=== PATIENT | female | born 1970 | race Caucasian/White ===

== ENCOUNTER 2017-01-30 01:05 | Emergency (ER) | payer OTHER ==
[~2017-01-30] VITALS: Ht 160 cm; Wt 64.0 kg
[~2017-01-30 01:05] MED LIST: BENZ2AMP2 PO; DIVA500T35 PO; FERR-89 PO; PALI234D IM; RISP3TAB6 PO
[2017-01-30 01:50] LABS: BASOPHILS % (AUTO) 0.3 % (0.0-2.0); EOSINOPHILS % (AUTO) 0.7 % (1.0-6.0); HEMATOCRIT 37.8 % (36-46); HEMOGLOBIN 12.4 g/dL (12.0-16.0); LYMPHOCYTES % (AUTO) 29.2 % (22.0-44.0); MEAN CORPUSCULAR HEMOGLOBIN 28.6 pg (26.0-34.0); MEAN CORPUSCULAR HGB CONC 32.9 G/dL (31.0-37.0); MEAN CORPUSCULAR VOLUME 87 fL (80-100); MONOCYTES # (AUTO) 0.5 K/uL (0.1-1.0); MONOCYTES % (AUTO) 5.1 % (2.0-9.0); NEUTROPHILS # (AUTO) 6.7 K/uL (1.8-7.7); NEUTROPHILS % (AUTO) 64.7 % (40.0-70.0); PLATELET COUNT (AUTO) 258 K/uL (150-450); RED BLOOD CELL COUNT(AUTO) 4.35 MIL/uL (4.00-5.20); RED CELL DISTRIBUTION WIDTH 14.3 % (11.5-14.5); WHITE BLOOD COUNT (AUTO) 10.4 K/uL (4.5-11.0)
[2017-01-30 02:00] LABS: ANION GAP 6 mmol/L (8-16); CALCIUM, TOTAL 8.9 mg/dL (8.8-10.5); CARBON DIOXIDE 31 mmol/L (22-29); CHLORIDE 102 mmol/L (98-107); CREATININE 0.61 mg/dL (0.60-1.30); GLOMERULAR FILTR. RATE CALC > 60 mL/min (>60); POTASSIUM 3.5 mmol/L (3.5-5.1); SODIUM SERUM 139 mmol/L (136-145); UREA NITROGEN, BLOOD 8 mg/dL (7-18)
[2017-01-30 02:06] LABS: ALANINE AMINOTRANSFERASE 19 U/L (12-78); ALBUMIN 3.7 g/dL (3.4-5.0); ASPARTATE AMINOTRANSFERASE 14 U/L (15-37); BILIRUBIN,TOTAL 0.3 mg/dL (0.1-1.0); TOTAL PROTEIN, SERUM 7.6 g/dL (6.4-8.2)
[2017-01-30 03:47] VITALS: BP 112/68
[2017-01-30] MEDS ORDERED: RISP1 PO (08:41)
[2017-01-30] MEDS ORDERED: DIVA125T PO (08:41)
== END 2017-01-30 03:49 | disposition home or self-care (01) ==
LOC: EMS 01:06
DX: F25.9 Schizoaffective disorder, unspecified (principal); I10 Essential (primary) hypertension; F17.210 Nicotine dependence, cigarettes, uncomplicated; F15.90 Other stimulant use, unspecified, uncomplicated
CPT/HCPCS: 36415; 80053; 85025; 99285; G0480

== ENCOUNTER 2017-01-30 08:19 | Inpatient (IN) | payer MEDICAID, OTHER ==
[~2017-01-30] VITALS: Ht 170.2 cm; Wt 63.2 kg
[2017-01-30] MEDS ORDERED: DIVA125T PO (08:41)
[2017-01-30] MEDS ORDERED: RISP1 PO (08:41)
[2017-01-30 09:42] LABS: BASOPHILS % (AUTO) 0.3 % (0.0-2.0); EOSINOPHILS % (AUTO) 0.6 % (1.0-6.0); HEMATOCRIT 37.8 % (36-46); HEMOGLOBIN 12.5 g/dL (12.0-16.0); LYMPHOCYTES % (AUTO) 35.1 % (22.0-44.0); MEAN CORPUSCULAR HEMOGLOBIN 28.7 pg (26.0-34.0); MEAN CORPUSCULAR VOLUME 87 fL (80-100); MONOCYTES # (AUTO) 0.4 K/uL (0.1-1.0); MONOCYTES % (AUTO) 4.8 % (2.0-9.0); NEUTROPHILS % (AUTO) 59.2 % (40.0-70.0); PLATELET COUNT (AUTO) 239 K/uL (150-450); RED BLOOD CELL COUNT(AUTO) 4.35 MIL/uL (4.00-5.20); RED CELL DISTRIBUTION WIDTH 14.5 % (11.5-14.5); WHITE BLOOD COUNT (AUTO) 8.4 K/uL (4.5-11.0)
[2017-01-30 09:47] LABS: ANION GAP 11 mmol/L (8-16); CALCIUM, TOTAL 8.9 mg/dL (8.8-10.5); CARBON DIOXIDE 26 mmol/L (22-29); CHLORIDE 103 mmol/L (98-107); CREATININE 0.56 mg/dL (0.60-1.30); GLOMERULAR FILTR. RATE CALC > 60 mL/min (>60); POTASSIUM 3.7 mmol/L (3.5-5.1); SODIUM SERUM 140 mmol/L (136-145); UREA NITROGEN, BLOOD 8 mg/dL (7-18)
[2017-01-30 09:53] LABS: ALANINE AMINOTRANSFERASE 16 U/L (12-78); ALBUMIN 3.8 g/dL (3.4-5.0); ASPARTATE AMINOTRANSFERASE 14 U/L (15-37); BILIRUBIN,TOTAL 0.2 mg/dL (0.1-1.0); TOTAL PROTEIN, SERUM 7.8 g/dL (6.4-8.2)
[2017-01-30 10:06] LABS: VALPROIC ACID < 3 mcg/mL (50-100)
[2017-01-30 11:34] VITALS: BP 121/78
[2017-01-30] MEDS: LORazepam 2 MG TABLET PO PRN ×2 (12:32→16:38)
[2017-01-30] MEDS: HALOPERIDOL 5 MG TABLET PO PRN ×2 (12:33→16:38)
[2017-01-30 16:08] VITALS: BP 114/77
[2017-01-31 06:34] VITALS: BP 119/72
[2017-01-31] MEDS: LORazepam 2 MG TABLET PO PRN (06:44)
[2017-01-31] MEDS: HALOPERIDOL 5 MG TABLET PO PRN (07:46)
[2017-01-31] MEDS ORDERED: IBUPROFEN 400 MG TABLET PO PRN (10:30)
[2017-01-31] MEDS: RisperiDONE 3 MG TABLET PO SCH (17:24)
[2017-01-31] MEDS: BENZTROPINE MESYLATE 1 MG TABLET PO SCH (17:24)
[2017-01-31] MEDS: DIVALPROEX SODIUM 500 MG DR TABLET PO SCH (17:24)
[2017-02-01] MEDS: PALIPERIDONE PALMITATE 234 MG/1.5 ML SYRINGE IM SCH ×2 (09:00→11:52)
[2017-02-01] MEDS: BENZTROPINE MESYLATE 1 MG TABLET PO SCH ×2 (10:56→16:13)
[2017-02-01] MEDS: DIVALPROEX SODIUM 500 MG DR TABLET PO SCH ×2 (10:56→16:13)
[2017-02-01] MEDS: RisperiDONE 3 MG TABLET PO SCH ×2 (10:56→16:13)
[2017-02-01 16:57] VITALS: BP 117/71
[2017-02-01] MEDS: LORazepam 2 MG TABLET PO PRN (20:19)
[2017-02-01] MEDS: HALOPERIDOL 5 MG TABLET PO PRN (20:19)
[2017-02-02] MEDS: BENZTROPINE MESYLATE 1 MG TABLET PO SCH ×2 (09:30→16:03)
[2017-02-02] MEDS: DIVALPROEX SODIUM 500 MG DR TABLET PO SCH ×2 (09:30→16:03)
[2017-02-02] MEDS: RisperiDONE 3 MG TABLET PO SCH ×2 (09:31→16:03)
[2017-02-02 16:05] VITALS: BP 114/76
[2017-02-02] MEDS: ACETAMINOPHEN 325 MG TABLET PO PRN (16:08)
[2017-02-02] MEDS: HALOPERIDOL 5 MG TABLET PO PRN (18:06)
[2017-02-02] MEDS: LORazepam 2 MG TABLET PO PRN (18:06)
[2017-02-03 08:00] VITALS: BP 99/63
[2017-02-03 09:15] LABS: CHOL/HDL RATIO 3.4 (3.9-5.7)
[2017-02-03] MEDS: RisperiDONE 3 MG TABLET PO SCH ×2 (09:28→16:08)
[2017-02-03] MEDS: BENZTROPINE MESYLATE 1 MG TABLET PO SCH ×2 (09:28→16:08)
[2017-02-03] MEDS: DIVALPROEX SODIUM 500 MG DR TABLET PO SCH ×2 (09:28→16:08)
[2017-02-03] MEDS: HALOPERIDOL 5 MG TABLET PO PRN (13:44)
[2017-02-03] MEDS: LORazepam 2 MG TABLET PO PRN ×2 (13:44→19:55)
[2017-02-03] MEDS: ACETAMINOPHEN 325 MG TABLET PO PRN (16:36)
[2017-02-03] MEDS: ZOLPIDEM TARTRATE 10 MG TABLET PO PRN (23:16)
[2017-02-04] MEDS: RisperiDONE 3 MG TABLET PO SCH ×2 (09:13→16:11)
[2017-02-04] MEDS: BENZTROPINE MESYLATE 1 MG TABLET PO SCH ×2 (09:13→16:11)
[2017-02-04] MEDS: DIVALPROEX SODIUM 500 MG DR TABLET PO SCH ×2 (09:13→16:11)
[2017-02-04] MEDS: LORazepam 2 MG TABLET PO PRN (16:11)
[2017-02-05] MEDS: RisperiDONE 3 MG TABLET PO SCH ×2 (08:33→16:24)
[2017-02-05] MEDS: DIVALPROEX SODIUM 500 MG DR TABLET PO SCH ×2 (08:33→16:24)
[2017-02-05] MEDS: BENZTROPINE MESYLATE 1 MG TABLET PO SCH ×2 (08:34→16:24)
[2017-02-05 19:54] VITALS: BP 114/77
[2017-02-05] MEDS: ZOLPIDEM TARTRATE 10 MG TABLET PO PRN (20:49)
[2017-02-05] MEDS: ACETAMINOPHEN 325 MG TABLET PO PRN (21:18)
[2017-02-06] MEDS ORDERED: BENZ1TAB10 PO (08:30)
[2017-02-06] MEDS ORDERED: PALI234D IM (08:31)
[2017-02-06] MEDS: DIVALPROEX SODIUM 500 MG DR TABLET PO SCH (09:08)
[2017-02-06] MEDS: RisperiDONE 3 MG TABLET PO SCH (09:08)
[2017-02-06] MEDS: BENZTROPINE MESYLATE 1 MG TABLET PO SCH (09:08)
== END 2017-02-06 13:45 | disposition home or self-care (01) | DRG 750 ==
LOC: EMS 08:20 → 3EI 09:00
PROVIDERS: ADMIT Psychiatry & Neurology Psychiatry; ATTEND Psychiatry & Neurology Psychiatry
DX: F20.0 Paranoid schizophrenia (principal); I10 Essential (primary) hypertension; E78.5 Hyperlipidemia, unspecified; F17.210 Nicotine dependence, cigarettes, uncomplicated; F19.10 Other psychoactive substance abuse, uncomplicated; F99 Mental disorder, not otherwise specified; F31.9 Bipolar disorder, unspecified; Z79.899 Other long term (current) drug therapy
CPT/HCPCS: 99285; G0480

== ENCOUNTER 2017-02-22 10:50 | Inpatient (IN) | payer MEDICAID ==
[~2017-02-22] VITALS: Ht 170.2 cm; Wt 56.7 kg
[~2017-02-22 10:50] MED LIST changes: +BENZ1TAB10 PO; -BENZ2AMP2 PO; +DIVA125T PO; -DIVA500T35 PO; -FERR-89 PO; +RISP1 PO; -RISP3TAB6 PO
[2017-02-22] MEDS ORDERED: HALOPERIDOL 5 MG TABLET PO PRN (14:00)
[2017-02-22] MEDS ORDERED: ZOLPIDEM TARTRATE 10 MG TABLET PO PRN (14:00)
[2017-02-22 14:15] VITALS: BP 98/60
[2017-02-22] MEDS ORDERED: DIVA500T35 PO (15:57)
[2017-02-22] MEDS ORDERED: RISP3 PO (15:57)
[2017-02-22] MEDS ORDERED: INFLUENZA VIRUS VACCINE QVS 2016-17 (3YR+)/PF 60 MCG/0.5 ML SYRINGE IM ONE (16:00)
[2017-02-22] MEDS ORDERED: PNEUMOCOCCAL VACCINE POLYVALENT 0.5 ML VIAL [PPSV23] IM ONE (16:00)
[2017-02-22 16:05] VITALS: BP 129/60
[2017-02-22] MEDS: RisperiDONE 3 MG TABLET PO SCH (17:05)
[2017-02-22] MEDS: BENZTROPINE MESYLATE 1 MG TABLET PO SCH (17:05)
[2017-02-22] MEDS: DIVALPROEX SODIUM 500 MG DR TABLET PO SCH (17:05)
[2017-02-23] MEDS: BENZTROPINE MESYLATE 1 MG TABLET PO SCH ×2 (08:25→16:02)
[2017-02-23] MEDS: DIVALPROEX SODIUM 500 MG DR TABLET PO SCH ×2 (08:25→16:02)
[2017-02-23] MEDS: RisperiDONE 3 MG TABLET PO SCH ×2 (08:25→16:02)
[2017-02-23] MEDS: LORazepam 2 MG TABLET PO PRN ×2 (09:24→16:03)
[2017-02-23] MEDS ORDERED: IBUPROFEN 400 MG TABLET PO PRN (12:00)
[2017-02-23] MEDS ORDERED: ACETAMINOPHEN 325 MG TABLET PO PRN (12:00)
[2017-02-23] MEDS ORDERED: BENZTROPINE MESYLATE 1 MG TABLET PO SCH (17:00)
[2017-02-23] MEDS ORDERED: DIVALPROEX SODIUM 500 MG DR TABLET PO SCH (17:00)
[2017-02-24 06:29] VITALS: BP 123/71
[2017-02-24] MEDS: RisperiDONE 3 MG TABLET PO SCH ×2 (09:39→16:06)
[2017-02-24] MEDS: DIVALPROEX SODIUM 500 MG DR TABLET PO SCH ×2 (09:39→16:07)
[2017-02-24] MEDS: BENZTROPINE MESYLATE 1 MG TABLET PO SCH ×2 (09:39→16:07)
[2017-02-24] MEDS: LORazepam 2 MG TABLET PO PRN (10:19)
[2017-02-25 08:41] VITALS: BP 122/74
[2017-02-25] MEDS: BENZTROPINE MESYLATE 1 MG TABLET PO SCH ×2 (10:04→16:00)
[2017-02-25] MEDS: DIVALPROEX SODIUM 500 MG DR TABLET PO SCH ×2 (10:04→16:00)
[2017-02-25] MEDS: RisperiDONE 3 MG TABLET PO SCH ×2 (10:04→16:00)
[2017-02-25] MEDS: LORazepam 2 MG TABLET PO PRN ×2 (10:54→16:00)
[2017-02-25 16:11] VITALS: BP 112/73
[2017-02-26] MEDS: BENZTROPINE MESYLATE 1 MG TABLET PO SCH ×2 (08:39→16:23)
[2017-02-26] MEDS: DIVALPROEX SODIUM 500 MG DR TABLET PO SCH ×2 (08:39→16:23)
[2017-02-26] MEDS: RisperiDONE 3 MG TABLET PO SCH ×2 (08:40→16:23)
[2017-02-26] MEDS: LORazepam 2 MG TABLET PO PRN ×2 (12:41→17:19)
[2017-02-26 16:00] VITALS: BP 142/80
[2017-02-27 08:30] VITALS: BP 126/68
[2017-02-27] MEDS: RisperiDONE 3 MG TABLET PO SCH ×2 (08:47→16:33)
[2017-02-27] MEDS: BENZTROPINE MESYLATE 1 MG TABLET PO SCH ×2 (08:47→16:33)
[2017-02-27] MEDS: DIVALPROEX SODIUM 500 MG DR TABLET PO SCH ×2 (08:47→16:33)
[2017-02-27] MEDS: LORazepam 2 MG TABLET PO PRN ×2 (12:21→17:49)
[2017-02-28 08:45] VITALS: BP 130/68
[2017-02-28] MEDS: DIVALPROEX SODIUM 500 MG DR TABLET PO SCH ×2 (09:23→16:07)
[2017-02-28] MEDS: RisperiDONE 3 MG TABLET PO SCH ×2 (09:23→16:07)
[2017-02-28] MEDS: BENZTROPINE MESYLATE 1 MG TABLET PO SCH ×2 (09:23→16:07)
[2017-02-28] MEDS: LORazepam 2 MG TABLET PO PRN ×2 (10:07→15:47)
[2017-02-28 16:00] VITALS: BP 109/72
[2017-03-01] MEDS: RisperiDONE 3 MG TABLET PO SCH (08:11)
[2017-03-01] MEDS: BENZTROPINE MESYLATE 1 MG TABLET PO SCH (08:11)
[2017-03-01] MEDS: DIVALPROEX SODIUM 500 MG DR TABLET PO SCH (08:11)
[2017-03-01 08:49] VITALS: BP 100/76
[2017-03-01] MEDS: LORazepam 2 MG TABLET PO PRN (10:03)
== END 2017-03-01 13:25 | disposition home or self-care (01) | DRG 750 ==
LOC: B3A 14:04 → EDSTATUS 14:15
PROVIDERS: ADMIT Psychiatry & Neurology Psychiatry; ATTEND Psychiatry & Neurology Psychiatry
DX: F20.0 Paranoid schizophrenia (principal); Z91.14 Patient's other noncompliance with medication regimen; I10 Essential (primary) hypertension; E78.5 Hyperlipidemia, unspecified; F19.10 Other psychoactive substance abuse, uncomplicated; Z28.21 Immunization not carried out because of patient refusal; Z71.51 Drug abuse counseling and surveillance of drug abuser
CPT/HCPCS: 87081; 90471

== ENCOUNTER 2017-11-13 03:55 | Emergency (ER) | payer MEDICAID, OTHER ==
[~2017-11-13] VITALS: Ht 167.6 cm; Wt 77.3 kg
[~2017-11-13 03:55] MED LIST changes: -DIVA125T PO; +DIVA500T35 PO; -RISP1 PO; +RISP3 PO
[2017-11-13 04:56] VITALS: BP 132/81
== END 2017-11-13 06:41 | disposition home or self-care (01) ==
LOC: EMS 03:56
DX: F25.9 Schizoaffective disorder, unspecified (principal); F31.9 Bipolar disorder, unspecified; I10 Essential (primary) hypertension; F17.210 Nicotine dependence, cigarettes, uncomplicated
CPT/HCPCS: 99285; 99406

== ENCOUNTER 2017-12-11 09:35 | Inpatient (IN) | payer MEDICAID, OTHER ==
[~2017-12-11] VITALS: Ht 170.2 cm; Wt 59.4 kg
[2017-12-11 10:29] LABS: BASOPHILS # (AUTO) 0.02 K/uL (0.00-0.20); BASOPHILS % (AUTO) 0.3 % (0.0-2.0); EOSINOPHILS # (AUTO) 0.03 K/uL (0.00-0.70); EOSINOPHILS % (AUTO) 0.42 % (1.0-6.0); HEMATOCRIT 36.3 % (36-46); HEMOGLOBIN 12.4 g/dL (12.0-16.0); LYMPHOCYTES # (AUTO) 2.7 K/uL (1.0-4.8); MEAN CORPUSCULAR HEMOGLOBIN 30.2 pg (26.0-34.0); MEAN CORPUSCULAR HGB CONC 34.1 G/dL (31.0-37.0); MEAN CORPUSCULAR VOLUME 89 fL (80-100); MONOCYTES # (AUTO) 0.4 K/uL (0.1-1.0); MONOCYTES % (AUTO) 5.5 % (2.0-9.0); NEUTROPHILS # (AUTO) 4.8 K/uL (1.8-7.7); NEUTROPHILS % (AUTO) 59.8 % (40.0-70.0); PLATELET COUNT (AUTO) 225 K/uL (150-450); RED BLOOD CELL COUNT(AUTO) 4.09 MIL/uL (4.00-5.20); RED CELL DISTRIBUTION WIDTH 13.2 % (11.5-14.5)
[2017-12-11 10:47] LABS: ALANINE AMINOTRANSFERASE 17 U/L (12-78); ALBUMIN 3.8 g/dL (3.4-5.0); ALKALINE PHOSPHATASE 75 U/L (46-116); ANION GAP 9 mmol/L (8-16); ASPARTATE AMINOTRANSFERASE 14 U/L (15-37); BILIRUBIN,TOTAL 0.5 mg/dL (0.1-1.0); CALCIUM, TOTAL 8.8 mg/dL (8.8-10.5); CARBON DIOXIDE 30 mmol/L (22-29); CHLORIDE 99 mmol/L (98-107); CREATININE 0.61 mg/dL (0.60-1.30); GLOMERULAR FILTR. RATE CALC > 60 mL/min (>60); GLUCOSE,RANDOM 93 mg/dL (70-110); POTASSIUM 3.7 mmol/L (3.5-5.1); SODIUM SERUM 138 mmol/L (136-145); TOTAL PROTEIN, SERUM 7.4 g/dL (6.4-8.2)
[2017-12-11 10:52] LABS: UREA NITROGEN, BLOOD 11 mg/dL (7-18)
[2017-12-11] MEDS ORDERED: ZOLPIDEM TARTRATE 10 MG TABLET PO PRN (11:15)
[2017-12-11 11:27] LABS: VALPROIC ACID < 3 mcg/mL (50-100)
[2017-12-11] MEDS ORDERED: LORazepam 2 MG/ML VIAL IM ONE (11:30)
[2017-12-11] MEDS ORDERED: DiphenhydrAMINE HCL 50 MG/ML VIAL IM ONE (11:30)
[2017-12-11] MEDS ORDERED: HALOPERIDOL LACTATE 5 MG/ML VIAL IM ONE (11:30)
[2017-12-11 11:59] LABS: AMPHET/METH SCREEN,URINE POSITIVE (NEGATIVE); BARBITURATE SCREEN, URINE NEGATIVE (NEGATIVE); BENZODIAZEPINES SCREEN,URINE NEGATIVE (NEGATIVE); CANNABINOID SCREEN,URINE NEGATIVE (NEGATIVE); COCAINE SCREEN,URINE POSITIVE (NEGATIVE); METHADONE SCREEN, URINE NEGATIVE (NEGATIVE); OPIATE SCREEN,URINE NEGATIVE (NEGATIVE)
[2017-12-11 12:00] LABS: PHENCYCLIDINE SCREEN,URINE NEGATIVE (NEGATIVE)
[2017-12-11 12:47] LABS: HCG,QUAL RESULT NEGATIVE (NEGATIVE)
[2017-12-11] MEDS ORDERED: RISP2 PO ×2 (15:10)
[2017-12-11 16:06] VITALS: BP 137/97
[2017-12-11] MEDS: PALIPERIDONE 6 MG ER TABLET PO SCH (20:42)
[2017-12-12 08:11] VITALS: BP 104/75
[2017-12-12 08:18] LABS: CHOL/HDL RATIO 3.9 (3.9-5.7)
[2017-12-12] MEDS: BENZTROPINE MESYLATE 1 MG TABLET PO SCH ×2 (08:26→16:16)
[2017-12-12] MEDS: DIVALPROEX SODIUM 500 MG DR TABLET PO SCH ×2 (08:26→16:16)
[2017-12-12] MEDS: HALOPERIDOL 5 MG TABLET PO PRN (15:47)
[2017-12-12] MEDS ORDERED: ACETAMINOPHEN 325 MG TABLET PO PRN (16:30)
[2017-12-12 16:52] VITALS: BP 104/62
[2017-12-12] MEDS: PALIPERIDONE 6 MG ER TABLET PO SCH (20:03)
[2017-12-13] MEDS ORDERED: PNEUMOCOCCAL VACCINE POLYVALENT 0.5 ML VIAL [PPSV23] IM ONE (01:15)
[2017-12-13] MEDS ORDERED: INFLUENZA VIRUS VACCINE QVS 2017-18 (3YR+)/PF 60 MCG/0.5 ML SYRINGE IM ONE (01:15)
[2017-12-13] MEDS: BENZTROPINE MESYLATE 1 MG TABLET PO SCH ×2 (08:41→16:22)
[2017-12-13] MEDS: DIVALPROEX SODIUM 500 MG DR TABLET PO SCH ×2 (08:41→16:22)
[2017-12-13] MEDS: HALOPERIDOL 5 MG TABLET PO PRN ×2 (12:06→16:22)
[2017-12-13] MEDS: IBUPROFEN 400 MG TABLET PO PRN (14:09)
[2017-12-13 16:00] VITALS: BP 120/59
[2017-12-13] MEDS: LORazepam 2 MG TABLET PO PRN (16:22)
[2017-12-13] MEDS: PALIPERIDONE 6 MG ER TABLET PO SCH (20:04)
[2017-12-14] MEDS: LORazepam 2 MG TABLET PO PRN (08:14)
[2017-12-14] MEDS: DIVALPROEX SODIUM 500 MG DR TABLET PO SCH ×2 (08:14→16:38)
[2017-12-14] MEDS: BENZTROPINE MESYLATE 1 MG TABLET PO SCH ×2 (08:14→16:38)
[2017-12-14] MEDS: HALOPERIDOL 5 MG TABLET PO PRN (08:15)
[2017-12-14 08:36] VITALS: BP 112/72
[2017-12-14 17:23] VITALS: BP 115/83
[2017-12-14] MEDS: PALIPERIDONE 6 MG ER TABLET PO SCH (21:01)
[2017-12-15] MEDS: LORazepam 2 MG TABLET PO PRN (09:55)
[2017-12-15] MEDS: HALOPERIDOL 5 MG TABLET PO PRN (09:55)
[2017-12-15] MEDS: BENZTROPINE MESYLATE 1 MG TABLET PO SCH ×2 (09:55→16:47)
[2017-12-15] MEDS: DIVALPROEX SODIUM 500 MG DR TABLET PO SCH ×2 (09:55→16:47)
[2017-12-15] MEDS: IBUPROFEN 400 MG TABLET PO PRN (11:04)
[2017-12-15 16:37] VITALS: BP 124/78
[2017-12-15] MEDS: PALIPERIDONE 6 MG ER TABLET PO SCH (20:30)
[2017-12-16 08:55] VITALS: BP 101/51
[2017-12-16] MEDS: DIVALPROEX SODIUM 500 MG DR TABLET PO SCH ×2 (10:36→16:13)
[2017-12-16] MEDS: BENZTROPINE MESYLATE 1 MG TABLET PO SCH ×2 (10:36→16:13)
[2017-12-16 18:45] VITALS: BP 115/69
[2017-12-16] MEDS: PALIPERIDONE 6 MG ER TABLET PO SCH (21:09)
[2017-12-17 08:00] VITALS: BP 155/78
[2017-12-17] MEDS ORDERED: DIVA500T35 PO (08:26)
[2017-12-17] MEDS ORDERED: PALI6 PO (08:26)
[2017-12-17] MEDS: DIVALPROEX SODIUM 500 MG DR TABLET PO SCH (08:57)
[2017-12-17] MEDS: BENZTROPINE MESYLATE 1 MG TABLET PO SCH (08:57)
[2017-12-17] MEDS ORDERED: PALIPERIDONE PALMITATE 234 MG/1.5 ML SYRINGE IM SCH (09:00)
== END 2017-12-17 13:45 | disposition home or self-care (01) | DRG 750 ==
LOC: EMS 09:36 → 3EC 14:32 → 3EI 12-15 14:41
PROVIDERS: ADMIT Psychiatry & Neurology Psychiatry; ATTEND Psychiatry & Neurology Psychiatry
DX: F20.0 Paranoid schizophrenia (principal); Z91.14 Patient's other noncompliance with medication regimen; I10 Essential (primary) hypertension; E78.5 Hyperlipidemia, unspecified; F17.210 Nicotine dependence, cigarettes, uncomplicated; F31.9 Bipolar disorder, unspecified; F19.10 Other psychoactive substance abuse, uncomplicated; Z71.51 Drug abuse counseling and surveillance of drug abuser; Z79.899 Other long term (current) drug therapy; Z71.6 Tobacco abuse counseling; Z28.21 Immunization not carried out because of patient refusal
CPT/HCPCS: 96372; 99285; 99406; G0480; J1200; J1630; J2060

== ENCOUNTER 2018-01-24 09:34 | Inpatient (IN) | payer MEDICAID, OTHER ==
[~2018-01-24] VITALS: Ht 162.6 cm; Wt 61.7 kg
[~2018-01-24 09:34] MED LIST changes: +PALI6 PO; -RISP3 PO
[2018-01-24 10:08] LABS: BASOPHILS % (AUTO) 0.4 % (0.0-2.0); EOSINOPHILS % (AUTO) 0.8 % (1.0-6.0); HEMATOCRIT 36.8 % (36-46); HEMOGLOBIN 12.7 g/dL (12.0-16.0); LYMPHOCYTES # (AUTO) 2.4 K/uL (1.0-4.8); LYMPHOCYTES % (AUTO) 26.6 % (22.0-44.0); MEAN CORPUSCULAR HEMOGLOBIN 29.5 pg (26.0-34.0); MEAN CORPUSCULAR HGB CONC 34.4 G/dL (31.0-37.0); MEAN CORPUSCULAR VOLUME 86 fL (80-100); MONOCYTES # (AUTO) 0.6 K/uL (0.1-1.0); MONOCYTES % (AUTO) 6.4 % (2.0-9.0); NEUTROPHILS # (AUTO) 5.9 K/uL (1.8-7.7); NEUTROPHILS % (AUTO) 65.8 % (40.0-70.0); PLATELET COUNT (AUTO) 238 K/uL (150-450); RED BLOOD CELL COUNT(AUTO) 4.29 MIL/uL (4.00-5.20); RED CELL DISTRIBUTION WIDTH 14.4 % (11.5-14.5)
[2018-01-24 10:34] LABS: ANION GAP 7 mmol/L (8-16); CARBON DIOXIDE 31 mmol/L (22-29); CHLORIDE 102 mmol/L (98-107); CREATININE 0.55 mg/dL (0.60-1.30); GLOMERULAR FILTR. RATE CALC > 60 mL/min (>60); GLUCOSE,RANDOM 100 mg/dL (70-110); POTASSIUM 3.9 mmol/L (3.5-5.1); SODIUM SERUM 140 mmol/L (136-145); UREA NITROGEN, BLOOD 10 mg/dL (7-18)
[2018-01-24 10:40] LABS: ALANINE AMINOTRANSFERASE 15 U/L (12-78); ALBUMIN 3.6 g/dL (3.4-5.0); ALKALINE PHOSPHATASE 69 U/L (46-116); ASPARTATE AMINOTRANSFERASE 14 U/L (15-37); BILIRUBIN,TOTAL 0.2 mg/dL (0.1-1.0); TOTAL PROTEIN, SERUM 7.1 g/dL (6.4-8.2)
[2018-01-24 10:42] LABS: AMPHET/METH SCREEN,URINE NEGATIVE (NEGATIVE); BARBITURATE SCREEN, URINE NEGATIVE (NEGATIVE); BENZODIAZEPINES SCREEN,URINE NEGATIVE (NEGATIVE); CANNABINOID SCREEN,URINE POSITIVE (NEGATIVE); COCAINE SCREEN,URINE NEGATIVE (NEGATIVE); METHADONE SCREEN, URINE NEGATIVE (NEGATIVE); OPIATE SCREEN,URINE NEGATIVE (NEGATIVE)
[2018-01-24 10:44] LABS: PHENCYCLIDINE SCREEN,URINE NEGATIVE (NEGATIVE)
[2018-01-24 10:59] LABS: VALPROIC ACID 6 mcg/mL (50-100)
[2018-01-24] MEDS ORDERED: ZOLPIDEM TARTRATE 10 MG TABLET PO PRN (12:30)
[2018-01-24 13:54] VITALS: BP 124/82
[2018-01-24] MEDS ORDERED: INFLUENZA VIRUS VACCINE QVS 2017-18 (3YR+)/PF 60 MCG/0.5 ML SYRINGE IM ONE (15:00)
[2018-01-24] MEDS: BENZTROPINE MESYLATE 1 MG TABLET PO SCH (16:20)
[2018-01-24] MEDS: DIVALPROEX SODIUM 500 MG DR TABLET PO SCH (16:21)
[2018-01-24] MEDS: PALIPERIDONE 6 MG ER TABLET PO SCH (20:09)
[2018-01-25 07:29] LABS: CHOL/HDL RATIO 3.7 (3.9-5.7)
[2018-01-25] MEDS ORDERED: ACETAMINOPHEN 325 MG TABLET PO PRN (09:00)
[2018-01-25] MEDS ORDERED: IBUPROFEN 400 MG TABLET PO PRN (09:00)
[2018-01-25] MEDS: BENZTROPINE MESYLATE 1 MG TABLET PO SCH ×2 (10:28→16:50)
[2018-01-25] MEDS: DIVALPROEX SODIUM 500 MG DR TABLET PO SCH ×2 (10:28→16:50)
[2018-01-25 16:33] VITALS: BP 121/76
[2018-01-25] MEDS ORDERED: OLANZapine 10 MG TABLET PO SCH (21:00)
[2018-01-25] MEDS: PALIPERIDONE 6 MG ER TABLET PO SCH (21:21)
[2018-01-26] MEDS: HALOPERIDOL 5 MG TABLET PO PRN ×2 (08:23→16:35)
[2018-01-26] MEDS: LORazepam 2 MG TABLET PO PRN ×2 (08:23→16:35)
[2018-01-26] MEDS: DIVALPROEX SODIUM 500 MG DR TABLET PO SCH ×2 (08:23→16:34)
[2018-01-26] MEDS: BENZTROPINE MESYLATE 1 MG TABLET PO SCH ×2 (08:23→16:34)
[2018-01-26] MEDS ORDERED: SERTRALINE HCL 100 MG TABLET PO SCH (09:00)
[2018-01-26 16:21] VITALS: BP 96/62
[2018-01-26] MEDS: PALIPERIDONE 6 MG ER TABLET PO SCH (20:13)
[2018-01-27] MEDS: DIVALPROEX SODIUM 500 MG DR TABLET PO SCH ×2 (09:21→16:21)
[2018-01-27] MEDS: BENZTROPINE MESYLATE 1 MG TABLET PO SCH ×2 (09:21→16:21)
[2018-01-27] MEDS: PALIPERIDONE 6 MG ER TABLET PO SCH (21:14)
[2018-01-28 07:05] LABS: CHOL/HDL RATIO 3.7 (3.9-5.7); THYROID STIMULATING HORMONE 0.92 uIU/mL (0.36-3.74)
[2018-01-28 07:13] LABS: HEMOGLOBIN A1C 5.1 % (4.5-6.2)
[2018-01-28] MEDS: DIVALPROEX SODIUM 500 MG DR TABLET PO SCH ×2 (09:52→16:33)
[2018-01-28] MEDS: BENZTROPINE MESYLATE 1 MG TABLET PO SCH ×2 (09:52→16:34)
[2018-01-28 10:18] VITALS: BP 91/56
[2018-01-28] MEDS: LORazepam 2 MG TABLET PO PRN (16:05)
[2018-01-28 16:45] VITALS: BP 128/72
[2018-01-28] MEDS: PALIPERIDONE 6 MG ER TABLET PO SCH (20:31)
[2018-01-29] MEDS: BENZTROPINE MESYLATE 1 MG TABLET PO SCH ×2 (09:40→16:03)
[2018-01-29] MEDS: DIVALPROEX SODIUM 500 MG DR TABLET PO SCH ×2 (09:40→16:03)
== END 2018-01-29 17:00 | disposition home or self-care (01) | DRG 750 ==
LOC: EMS 09:38 → 3EI 13:03
DX: F25.1 Schizoaffective disorder, depressive type (principal); I10 Essential (primary) hypertension; E78.5 Hyperlipidemia, unspecified; E78.00 Pure hypercholesterolemia, unspecified; F12.10 Cannabis abuse, uncomplicated; F17.200 Nicotine dependence, unspecified, uncomplicated; F31.9 Bipolar disorder, unspecified
CPT/HCPCS: 83036; 84443; 99285; G0480

== ENCOUNTER 2018-06-11 10:57 | Inpatient (IN) | payer MEDICAID, OTHER ==
[~2018-06-11] VITALS: Ht 167.6 cm; Wt 63.2 kg
[~2018-06-11 10:57] MED LIST changes: +DIVA-78 PO; -DIVA500T35 PO; -PALI234D IM
[2018-06-11 12:51] LABS: BASOPHILS % (AUTO) 0.4 % (0.0-2.0); EOSINOPHILS % (AUTO) 0.5 % (1.0-6.0); HEMATOCRIT 37.9 % (36-46); HEMOGLOBIN 13.2 g/dL (12.0-16.0); LYMPHOCYTES # (AUTO) 2.4 K/uL (1.0-4.8); LYMPHOCYTES % (AUTO) 25.2 % (22.0-44.0); MEAN CORPUSCULAR HEMOGLOBIN 29.5 pg (26.0-34.0); MEAN CORPUSCULAR HGB CONC 34.9 G/dL (31.0-37.0); MEAN CORPUSCULAR VOLUME 84 fL (80-100); MONOCYTES # (AUTO) 0.6 K/uL (0.1-1.0); MONOCYTES % (AUTO) 6.3 % (2.0-9.0); NEUTROPHILS # (AUTO) 6.5 K/uL (1.8-7.7); NEUTROPHILS % (AUTO) 67.6 % (40.0-70.0); PLATELET COUNT (AUTO) 309 K/uL (150-450); RED BLOOD CELL COUNT(AUTO) 4.49 MIL/uL (4.00-5.20)
[2018-06-11 13:00] LABS: ANION GAP 6 mmol/L (8-16); CALCIUM, TOTAL 8.8 mg/dL (8.8-10.5); CARBON DIOXIDE 29 mmol/L (22-29); CHLORIDE 99 mmol/L (98-107); CREATININE 0.57 mg/dL (0.60-1.30); GLOMERULAR FILTR. RATE CALC > 60 mL/min (>60); GLUCOSE,RANDOM 98 mg/dL (70-110); POTASSIUM 3.6 mmol/L (3.5-5.1); SODIUM SERUM 134 mmol/L (136-145); UREA NITROGEN, BLOOD 6 mg/dL (7-18)
[2018-06-11 13:13] LABS: ALANINE AMINOTRANSFERASE 19 U/L (12-78); ALBUMIN 3.8 g/dL (3.4-5.0); ALKALINE PHOSPHATASE 83 U/L (46-116); ASPARTATE AMINOTRANSFERASE 18 U/L (15-37); BILIRUBIN,TOTAL 0.5 mg/dL (0.1-1.0); TOTAL PROTEIN, SERUM 7.7 g/dL (6.4-8.2); VALPROIC ACID < 3 mcg/mL (50-100)
[2018-06-11] MEDS ORDERED: HALOPERIDOL 5 MG TABLET PO PRN (17:00)
[2018-06-11] MEDS ORDERED: ZOLPIDEM TARTRATE 10 MG TABLET PO PRN (17:00)
[2018-06-11] MEDS ORDERED: IBUPROFEN 400 MG TABLET PO PRN (18:15)
[2018-06-11] MEDS ORDERED: MAG HYDROX/AL HYDROX/SIMETH ES 30 ML SUSPENSION UDCUP PO PRN (18:15)
[2018-06-11] MEDS ORDERED: MAGNESIUM HYDROXIDE SUSPENSION 30 ML UDCUP PO PRN (18:15)
[2018-06-11] MEDS ORDERED: PETROLATUM,WHITE 71 GM JELLY TP PRN (18:15)
[2018-06-11] MEDS ORDERED: CloNIDine HCL 0.1 MG TABLET PO PRN (18:15)
[2018-06-11] MEDS ORDERED: LOPERAMIDE HCL 2 MG CAPSULE PO PRN (18:15)
[2018-06-11] MEDS ORDERED: ONDANSETRON HCL 4 MG TABLET PO PRN (18:15)
[2018-06-11] MEDS ORDERED: DOCUSATE SODIUM 100 MG CAPSULE PO PRN (18:15)
[2018-06-11] MEDS ORDERED: NICOTINE 14 MG/24 HOUR PATCH TD SCH (18:15)
[2018-06-11] MEDS ORDERED: ACETAMINOPHEN 325 MG TABLET PO PRN (18:15)
[2018-06-11 19:53] VITALS: BP 106/58
[2018-06-12 06:49] LABS: BASOPHILS % (AUTO) 0.5 % (0.0-2.0); EOSINOPHILS % (AUTO) 1.4 % (1.0-6.0); HEMATOCRIT 38.9 % (36-46); HEMOGLOBIN 13.5 g/dL (12.0-16.0); LYMPHOCYTES # (AUTO) 2.4 K/uL (1.0-4.8); LYMPHOCYTES % (AUTO) 35.3 % (22.0-44.0); MEAN CORPUSCULAR HEMOGLOBIN 29.5 pg (26.0-34.0); MEAN CORPUSCULAR HGB CONC 34.8 G/dL (31.0-37.0); MEAN CORPUSCULAR VOLUME 85 fL (80-100); MONOCYTES # (AUTO) 0.5 K/uL (0.1-1.0); MONOCYTES % (AUTO) 6.7 % (2.0-9.0); NEUTROPHILS # (AUTO) 3.8 K/uL (1.8-7.7); NEUTROPHILS % (AUTO) 56.1 % (40.0-70.0); PLATELET COUNT (AUTO) 272 K/uL (150-450); RED BLOOD CELL COUNT(AUTO) 4.59 MIL/uL (4.00-5.20); RED CELL DISTRIBUTION WIDTH 13.7 % (11.5-14.5)
[2018-06-12 07:07] LABS: HEMOGLOBIN A1C 5.8 % (4.5-6.2)
[2018-06-12 07:16] LABS: ALANINE AMINOTRANSFERASE 17 U/L (12-78); ALBUMIN 3.5 g/dL (3.4-5.0); ALKALINE PHOSPHATASE 82 U/L (46-116); ANION GAP 6 mmol/L (8-16); ASPARTATE AMINOTRANSFERASE 15 U/L (15-37); BILIRUBIN,TOTAL 0.8 mg/dL (0.1-1.0); CALCIUM, TOTAL 8.9 mg/dL (8.8-10.5); CARBON DIOXIDE 29 mmol/L (22-29); CHLORIDE 101 mmol/L (98-107); CHOL/HDL RATIO 3.7 (3.9-5.7); CHOLESTEROL 180 mg/dL (131-200); CREATININE 0.53 mg/dL (0.60-1.30); GLOMERULAR FILTR. RATE CALC > 60 mL/min (>60); GLUCOSE,RANDOM 89 mg/dL (70-110); HDL CHOLESTEROL 49 mg/dL (40-60); LDL CHOL (CALC.) 113 mg/dL (0-130); POTASSIUM 3.8 mmol/L (3.5-5.1); SODIUM SERUM 136 mmol/L (136-145); THYROID STIMULATING HORMONE 0.33 uIU/mL (0.36-3.74); TOTAL PROTEIN, SERUM 7.2 g/dL (6.4-8.2); TRIGLYCERIDES 90 mg/dL (15-150); UREA NITROGEN, BLOOD 8 mg/dL (7-18)
[2018-06-12 08:47] VITALS: BP 111/74
[2018-06-13 05:57] VITALS: BP 111/77
[2018-06-13] MEDS: LORazepam 2 MG TABLET PO PRN (08:44)
[2018-06-13 09:44] VITALS: BP 122/71
[2018-06-13] MEDS: PALIPERIDONE 6 MG ER TABLET PO SCH (21:00)
[2018-06-14 08:15] VITALS: BP 95/61
[2018-06-14] MEDS: BENZTROPINE MESYLATE 1 MG TABLET PO SCH ×2 (09:57→16:42)
[2018-06-14] MEDS: DIVALPROEX SODIUM 500 MG DR TABLET PO SCH ×2 (09:57→16:42)
[2018-06-14] MEDS ORDERED: PALIPERIDONE PALMITATE 234 MG/1.5 ML SYRINGE IM SCH (11:00)
[2018-06-14 16:58] VITALS: BP 143/60
[2018-06-14] MEDS: PALIPERIDONE 6 MG ER TABLET PO SCH (20:16)
[2018-06-15 02:41] VITALS: BP 100/67
[2018-06-15] MEDS: BENZTROPINE MESYLATE 1 MG TABLET PO SCH ×2 (12:15→16:19)
[2018-06-15] MEDS: DIVALPROEX SODIUM 500 MG DR TABLET PO SCH ×2 (12:15→16:19)
[2018-06-15] MEDS: PALIPERIDONE 6 MG ER TABLET PO SCH (20:26)
[2018-06-16] MEDS: DIVALPROEX SODIUM 500 MG DR TABLET PO SCH ×2 (09:00→16:23)
[2018-06-16] MEDS: BENZTROPINE MESYLATE 1 MG TABLET PO SCH ×2 (09:00→16:23)
[2018-06-16] MEDS: PALIPERIDONE 6 MG ER TABLET PO SCH (20:06)
[2018-06-16 21:27] VITALS: BP 145/97
[2018-06-17 02:17] VITALS: BP 111/70
[2018-06-17] MEDS: LORazepam 2 MG TABLET PO PRN ×2 (02:17→18:06)
[2018-06-17] MEDS: DIVALPROEX SODIUM 500 MG DR TABLET PO SCH ×2 (10:38→16:02)
[2018-06-17] MEDS: BENZTROPINE MESYLATE 1 MG TABLET PO SCH ×2 (10:38→16:02)
[2018-06-17] MEDS: PALIPERIDONE 6 MG ER TABLET PO SCH (21:04)
[2018-06-18] MEDS: BENZTROPINE MESYLATE 1 MG TABLET PO SCH ×2 (09:52→16:38)
[2018-06-18] MEDS: DIVALPROEX SODIUM 500 MG DR TABLET PO SCH ×2 (09:52→16:38)
[2018-06-18 10:00] VITALS: BP 110/62
[2018-06-18] MEDS: PALIPERIDONE 6 MG ER TABLET PO SCH (20:28)
[2018-06-18 20:53] VITALS: BP 121/70
[2018-06-19] MEDS ORDERED: DIVA-78 PO (03:19)
[2018-06-19] MEDS ORDERED: BENZ1TAB10 PO (03:19)
[2018-06-19] MEDS ORDERED: PALI234D IM (03:20)
[2018-06-19 08:00] VITALS: BP 118/70
[2018-06-19] MEDS: BENZTROPINE MESYLATE 1 MG TABLET PO SCH (09:26)
[2018-06-19] MEDS: DIVALPROEX SODIUM 500 MG DR TABLET PO SCH (09:26)
[2018-06-19] MEDS ORDERED: PALI6 PO (09:45)
== END 2018-06-19 14:30 | disposition home or self-care (01) | DRG 750 ==
LOC: EMS 10:58 → 3EI 17:31
PROVIDERS: ADMIT Psychiatry & Neurology Psychiatry; ATTEND Psychiatry & Neurology Psychiatry
DX: F20.0 Paranoid schizophrenia (principal); Z91.14 Patient's other noncompliance with medication regimen; I10 Essential (primary) hypertension; F31.9 Bipolar disorder, unspecified; F17.210 Nicotine dependence, cigarettes, uncomplicated; F15.90 Other stimulant use, unspecified, uncomplicated; G47.00 Insomnia, unspecified; K59.00 Constipation, unspecified; Z71.6 Tobacco abuse counseling
CPT/HCPCS: 83036; 84443; 99285; G0480

== ENCOUNTER 2019-08-22 16:07 | Inpatient (IN) | payer MEDICAID ==
[~2019-08-22] VITALS: Ht 162.6 cm; Wt 65.7 kg
[~2019-08-22 16:07] MED LIST changes: +PALI234D IM
[2019-08-22] MEDS ORDERED: HALOPERIDOL 5 MG TABLET PO PRN (16:15)
[2019-08-22] MEDS ORDERED: ZOLPIDEM TARTRATE 10 MG TABLET PO PRN (16:15)
[2019-08-22 16:20] VITALS: BP 104/71
[2019-08-22] MEDS ORDERED: DIVA250T45 PO (17:07)
[2019-08-22] MEDS ORDERED: OLAN10TA3 PO (17:07)
[2019-08-22] MEDS ORDERED: PALI156D IM (17:07)
[2019-08-22 17:22] VITALS: BP 125/88
[2019-08-22 17:34] VITALS: BP 125/88
[2019-08-23 02:58] VITALS: BP 124/79
[2019-08-23 08:14] LABS: BASOPHILS % (AUTO) 0.4 % (0.0-2.0); EOSINOPHILS % (AUTO) 1.9 % (1.0-6.0); HEMATOCRIT 35.5 % (36-46); HEMOGLOBIN 12.3 g/dL (12.0-16.0); LYMPHOCYTES # (AUTO) 2.8 K/uL (1.0-4.8); LYMPHOCYTES % (AUTO) 41.6 % (22.0-44.0); MEAN CORPUSCULAR HEMOGLOBIN 30.6 pg (26.0-34.0); MEAN CORPUSCULAR HGB CONC 34.7 G/dL (31.0-37.0); MEAN CORPUSCULAR VOLUME 88 fL (80-100); MONOCYTES # (AUTO) 0.5 K/uL (0.1-1.0); MONOCYTES % (AUTO) 7.4 % (2.0-9.0); NEUTROPHILS # (AUTO) 3.3 K/uL (1.8-7.7); NEUTROPHILS % (AUTO) 48.7 % (40.0-70.0); PLATELET COUNT (AUTO) 229 K/uL (150-450); RED BLOOD CELL COUNT(AUTO) 4.02 MIL/uL (4.00-5.20); RED CELL DISTRIBUTION WIDTH 13.7 % (11.5-14.5)
[2019-08-23] MEDS ORDERED: ACETAMINOPHEN 325 MG TABLET PO PRN (08:15)
[2019-08-23] MEDS ORDERED: GuaiFENesin/D-METHORPHAN [SUGAR-FREE] 200-20MG/10 ML SYRUP UDCUP PO PRN (08:15)
[2019-08-23] MEDS ORDERED: PETROLATUM,WHITE 28 GM JELLY TP PRN (08:15)
[2019-08-23] MEDS ORDERED: CloNIDine HCL 0.1 MG TABLET PO PRN (08:15)
[2019-08-23] MEDS ORDERED: LOPERAMIDE HCL 2 MG CAPSULE PO PRN (08:15)
[2019-08-23] MEDS ORDERED: NICOTINE 14 MG/24 HOUR PATCH TD PRN (08:15)
[2019-08-23] MEDS ORDERED: DOCUSATE SODIUM 100 MG CAPSULE PO PRN (08:15)
[2019-08-23] MEDS ORDERED: IBUPROFEN 400 MG TABLET PO PRN (08:15)
[2019-08-23] MEDS ORDERED: MAG HYDROX/AL HYDROX/SIMETH ES 30 ML SUSPENSION UDCUP PO PRN (08:15)
[2019-08-23] MEDS ORDERED: MAGNESIUM HYDROXIDE SUSPENSION 30 ML UDCUP PO PRN (08:15)
[2019-08-23] MEDS ORDERED: ONDANSETRON HCL 4 MG TABLET PO PRN (08:15)
[2019-08-23] MEDS ORDERED: ALBUTEROL SULFATE HFA 90 MCG/PUFF 8 GM INHALER IH PRN (08:15)
[2019-08-23 08:23] VITALS: BP 119/68
[2019-08-23 09:13] LABS: CHOL/HDL RATIO 3.7 (3.9-5.7); FREE T4 (FREE THYROXINE) 0.84 ng/dL (0.76-1.46); THYROID STIMULATING HORMONE 1.7 uIU/mL (0.36-3.74)
[2019-08-23] MEDS: LORazepam 1 MG TABLET PO PRN (12:10)
[2019-08-23 16:24] VITALS: BP 122/59
[2019-08-23] MEDS: DIVALPROEX SODIUM 250 MG ER TABLET PO SCH (20:12)
[2019-08-23] MEDS: OLANZapine 10 MG TABLET PO SCH (20:12)
[2019-08-24 06:51] VITALS: BP 127/63
[2019-08-24 08:24] VITALS: BP 121/69
[2019-08-24] MEDS: LORazepam 1 MG TABLET PO PRN ×2 (09:21→16:02)
[2019-08-24] MEDS ORDERED: TUBERCULIN, PURIFIED PROTEIN DERIVATIVE 5 TU/0.1 ML SYRINGE ID ONE (13:15)
[2019-08-24 16:12] VITALS: BP 103/66
[2019-08-24] MEDS: DIVALPROEX SODIUM 250 MG ER TABLET PO SCH (20:04)
[2019-08-24] MEDS: OLANZapine 10 MG TABLET PO SCH (20:04)
[2019-08-25 06:33] VITALS: BP 115/69
[2019-08-25 08:05] VITALS: BP 123/60
== END 2019-08-25 11:00 | disposition home or self-care (01) | DRG 750 ==
LOC: B3A 16:14 → UNDODISIN 08-24 10:20
PROVIDERS: ADMIT Psychiatry & Neurology Psychiatry; ATTEND Psychiatry & Neurology Psychiatry
DX: F25.9 Schizoaffective disorder, unspecified (principal); Z59.0 Homelessness; E78.5 Hyperlipidemia, unspecified; F19.10 Other psychoactive substance abuse, uncomplicated; F17.200 Nicotine dependence, unspecified, uncomplicated; I10 Essential (primary) hypertension; Z79.899 Other long term (current) drug therapy; Z91.5 Personal history of self-harm; Z71.6 Tobacco abuse counseling; Z71.51 Drug abuse counseling and surveillance of drug abuser
CPT/HCPCS: 84439; 84443